=== PATIENT | female | born 1975 | race Hispanic/Latino ===

== ENCOUNTER 2020-10-22 17:26 | Emergency (ER) | payer SELFPAY ==
--- NOTE | 2020-10-22 19:02 | Event Note ---
ED Screening Note Date of service: 10/22/20 Time: 19:00 ED Screening Note: Pt is a 45 y/o female who presents for n/v/d x 3 days, after eating seafood buffet. pain described 6/10 aching cramping, pain exacerbated by po intake, symptoms relieved by nothing, diarrhea is green foul smelling. pt states malaise no fever no chills. This initial assessment/diagnostic orders/clinical plan/treatment(s) is/are subject to change based on patients health status, clinical progression and re-assessment by fellow clinical providers in the ED. Further treatment and workup at subsequent clinical providers discretion. Patient/guardian urged not to elope from the ED as their condition may be serious if not clinically assessed and managed. Initial orders include: cmp, cbc, lipase, ua, kub
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
--- NOTE | 2020-10-22 19:24 | XRay Report ---
ABDOMEN 1 VIEW INDICATION / CLINICAL INFORMATION: abd pain. COMPARISON: None available. FINDINGS: There is mild gaseous distention of the small bowel within the left abdomen. No free air is identifie d. No suspicious calcifications. No acute osseous findings. IMPRESSION: Mild gaseous distention of the small bowel left abdomen, which is favored to reflect adyn amic ileus in the setting of enteritis, given reported history. Signer Name: Jere Greenfield MD Signed: 10/22/2020 7:20 PM Workstation Name: [id number]
[2020-10-22 19:28] LABS: Basophils % (Auto) 0.3 % (0.0-1.8); Eosinophils # (Auto) 0.3 K/mm3 (0.0-0.4); Eosinophils % (Auto) 2.2 % (0.0-4.3); Hematocrit 44.5 % (30.3-42.9); Hemoglobin 15.3 gm/dl (10.1-14.3); Lymphocytes % (Auto) 27.2 % (13.4-35.0); Mean Corpuscular HGB Conc 34 % (30-34); Mean Corpuscular Volume 95 fl (79-97); Monocytes % (Auto) 6.9 % (0.0-7.3); Platelet Count 331 K/mm3 (140-440); Red Blood Count 4.69 M/mm3 (3.65-5.03); Red Cell Distribution Width 14.4 % (13.2-15.2)
[2020-10-22] MEDS ORDERED: SODIUM CHLORIDE 0.9% 1000 ML 1,000 ML IV ONE (19:37)
[2020-10-22] MEDS ORDERED: ONDANSETRON 4 MG/2 ML INJ IV ONE (19:38)
[2020-10-22 19:57] LABS: Alanine Aminotransferase 10 units/L (7-56); Albumin 4.1 g/dL (3.9-5); BUN/Creatinine Ratio 17; Blood Urea Nitrogen 15 mg/dL (7-17); Calcium 9.4 mg/dL (8.4-10.2); Hemolysis Index 8
[2020-10-22 22:40] VITALS: BP 123/76
== END 2020-10-22 22:38 | disposition home or self-care (01) ==
LOC: ED 17:26
DX: R10.12 Left upper quadrant pain (principal); R11.2 Nausea with vomiting, unspecified; F17.200 Nicotine dependence, unspecified, uncomplicated; Z79.899 Other long term (current) drug therapy; Z98.51 Tubal ligation status
CPT/HCPCS: 36415; 74018; 80053; 82140; 83690; 85025; 96361; 96374; 99284; J2405; J7030